=== PATIENT | female | born 1970 | race Caucasian/White ===

== ENCOUNTER 2018-11-04 15:30 | Emergency (ER) | payer BC ==
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
== END 2018-11-04 16:25 | disposition short-term general hospital (02) ==
LOC: ER 15:30
DX: M79.661 Pain in right lower leg (principal); F17.210 Nicotine dependence, cigarettes, uncomplicated
CPT/HCPCS: 99283